=== PATIENT | male | born 1985 | race Caucasian/White ===

== ENCOUNTER → 2023-09-04 00:31 | Outpatient (CLI) | payer MEDICAID, SELFPAY ==
--- NOTE | 2023-09-04 | DI.RAD_ITS ---
Exam(s) XR FOOT LT COMPLETE XR FOOT RT COMPLETE EXAM: XR FOOT LT COMPLETE CLINICAL HISTORY: LT FOOT PAIN,M79.672. TECHNIQUE: 2D digital imaging was performed. Three views of both feet. COMPARISON: CR XR FOOT RT COMPLETE from 09/04/2023 FINDINGS: BONES: No acute fracture is present. No bony destructive lesion is seen. Bones are normally mineraliz ed. JOINTS: No dislocation present. No joint space narrowing. SOFT TISSUE: Normal. IMPRESSION: Unremarkable radiographs of the bilateral feet. DATA REPOSITORY: RADIATION DOSE DELIVERED:
--- NOTE | 2023-09-04 | DI.RAD_ITS ---
Exam(s) XR CHEST 2V PA LATERAL EXAM: XR CHEST 2V PA LATERAL CLINICAL HISTORY: CHEST WALL PAIN,R07.89 TECHNIQUE: 2D digital imaging was performed. COMPARISON: No exams were available for comparison FINDINGS: HEART: Normal size. Aorta: Not dilated. PULMONARY VASCULATURE: Normal. LUNGS: Clear. PLEURAL SPACE: No pleural effusion or pneumothorax. BONE:Unremarkable for age. Soft tissues: Unremarkable. IMPRESSION: No acute abnormality. DATA REPOSITORY: RADIATION DOSE DELIVERED:
== END ==
PROVIDERS: PCP Nurse Practitioner; Visit Provider Student in an Organized Health Care Education/Training Program
DX: M79.672 Pain in left foot (principal); R07.89 Other chest pain
CPT/HCPCS: 71046; 73630